=== PATIENT | male | born 1935 | race Caucasian/White ===

== ENCOUNTER → 2016-05-10 | Day surgery (SDC) | payer MEDICARE, OTHER ==
[~2016-05-10] VITALS: Ht 177.8 cm; Wt 104.3 kg
[~2016-05-10] MED LIST: /ADVA50050; /ADVA50050 INH; /BENA10TA; /PANT40TA PO; /WARF25TA OR; /WARF5TA OR; ACETYLCHOLINE OPHTH SOLN 1% 2ML As Ordered ONE; ACETYLCHOLINE OPHTH SOLN 1% 2ML XX ONE; ADV250INH INH; ALBU17IN INH; ALBU83IN INH; ASPI81TA83; BABY81CH OR; BALANCED SALT IRRIGATION SOLUTION 500ML BAG (FOR OR EYE MACHINE) XX ONE; BENA10TA PO; BENA10TA2 OR; CARD120C3 PO; CARD120T6 OR; CEFUROXIME 1MG/0.1ML INTRACAMERAL INJ As Ordered ONE; CEFUROXIME 1MG/0.1ML INTRACAMERAL INJ XX ONE; CLOB0.0548 TOP; COLA100C PO; COLA100C2; COLA100C2 OR; COUM10TA OR; COUMADIN; DARV100T; FERR325T; FURO40TA2 OR; FURO40TA2 PO; HEALON DUET (HEALON 10MG/ML 0.55ML & HEALON ENDOCOAT 30MG/ML 0.85ML) As Ordered ONE; HYDR-3348 PO; HYDROCODONE; HYDRPOW48 PO; ISOS30BRAN; ISOS30BRAN OR; ISOS30TAB PO; LASI40TA; LIDOCAINE 0.75%/EPINEPHRINE 0.025% IN BSS 1ML SYR INTRACAMERAL (OR ONLY) As Ordered ONE; LIDOCAINE 0.75%/EPINEPHRINE 0.025% IN BSS 1ML SYR INTRACAMERAL (OR ONLY) XX ONE; LIDOCAINE 4% INJ 5 ML AMP OU ONE; LOVE0.6I2 SC; MAGN250T OR; MIDAZOLAM INJ 2 MG/2 ML VIAL (J2250) As Ordered ONE; NEXI1CAP4 PO; NITR0.1D TD; NITR0.1D10 SL; NITR0.4S; NITR0.4S SL; OFLOXACIN 0.3 % (OCUFLOX) OPTH SOL 5ML OS ONE; OFLOXACIN 0.3 % (OCUFLOX) OPTH SOL 5ML XX ONE; OMEP10CASR PO; OXYC10TA12 PO; OXYC15TA76 PO; PAIN325T OR; PARO20TA2 PO; PHENYLEPHRINE 2.5% OPHTH SOL 2ML OS ONE; PHENYLEPHRINE 2.5% OPHTH SOL 2ML XX ONE; PLAV75TA2; PLAV75TA2 OR; POVIDONE-IODINE 5% OPHTH PREP SOL 30ML As Ordered ONE; PRAV80TA OR; PROPARACAINE 0.5% OPHTH SOL 15ML OS ONE; PROPARACAINE 0.5% OPHTH SOL 15ML XX ONE; RANI150C OR; RANI1TAB6 PO; RANO5TAB OR; SPIR25TA2; TROPICAMIDE 1% OPHTH SOLN 2 ML OS ONE; TROPICAMIDE 1% OPHTH SOLN 2 ML XX ONE; VENTAER INH; VICO5TAB OR; WARF-23 PO; ZOCO80TA; ZOCO80TA OR; fentaNYL 100 MCG/2 ML INJECTION (J3010) As Ordered ONE; vitamin d PO
[2016-05-10 13:35] VITALS: BP 150/79
--- NOTE | 2016-05-11 09:26 | RO ---
DATE OF PROCEDURE: 05/10/2016 PREOPERATIVE DIAGNOSIS: Visually significant nuclear sclerotic cataract left eye. POSTOPERATIVE DIAGNOSIS: Visually significant nuclear sclerotic cataract left eye. PROCEDURE: Cataract extraction with use of phacoemulsification and placement of intraocular lens ZCB00, 19.0 Diopter, left eye SURGEON: Caesar Shankar DO INSTRUMENT TECHNICIAN APPRENTICE: ANESTHESIA: Local with monitored anesthesia care (MAC). COMPLICATIONS: None. POSTOPERATIVE CONDITION: Stable. INDICATION FOR SURGERY: Blurred vision left eye affecting patient's activities of daily living. DESCRIPTION OF PROCEDURE: The patient was seen in the preoperative area and properly identified. The correct operative eye was identified and marked. Attention was turned to that eye. The patient received topical antibiotics in the preoperative area. The patient then received topical dilating drops consisting of tropicamide and phenylephrine. The patient was then transferred to the operating room. The correct side was reidentified. The patient received topical anesthetics and antibiotics on the surface of the eye. The eye was prepped and draped in a sterile fashion. The upper and lower eyelids were isolated with Tegaderm tape, and the lids were held open with an adjustable speculum. Using a sideport blade, a paracentesis incision was made. Intraocular preservative-free lidocaine was then injected into the anterior chamber. Viscoelastic was then injected into the anterior chamber through the paracentesis. Using a 2.75 mm sharp-tipped keratome, the anterior chamber was entered via a temporal clear corneal incision. A continuous curvilinear capsulorrhexis was created with the aid of a 26-gauge cystotome and Utrata forceps. Hydrodissection was performed with balanced salt solution (BSS) on a blunt cannula until the nucleus was freely mobile. A small anterior capsular wrent was noted. The crystalline lens was phacoemulsified and aspirated. Inspection of the posterior capsule revealed it to be intact and without tear. Additional cohesive viscoelastic was placed into the capsular bag to deepen it. A ZCB00, 19.0 Diopter lens was placed into the capsular bag and confirmed by visualizing the continuous curvilinear capsulorrhexis. The lens was rotated so that the haptics were away from the anterior capsule wrent. Additional irrigation and aspiration was used to remove cortical material and remaining viscoelastic. The lens remained in good position and centration. A single 10-0 nylon suture was placed to close the main temporal incision. The clear corneal incision was hydrated with BSS on a blunt cannula. The lens was well positioned. The incisions were then tested for leaks and found to be negative. The eye was then palpated for appropriate pressure and adjusted accordingly with BSS. Tobradex ointment was placed in the eye. An eye patch and shield were then secured over the eye. The patient tolerated the procedure well and was discharged to the recovery unit in a stable condition. PRAVEEN
== END | disposition home or self-care (01) ==
LOC: M SDC 11:12
PROVIDERS: ATTEND Ophthalmology
DX: H25.12 Age-related nuclear cataract, left eye (principal); I11.9 Hypertensive heart disease without heart failure; I25.10 Atherosclerotic heart disease of native coronary artery without angina pectoris; I48.2 Chronic atrial fibrillation; I50.32 Chronic diastolic (congestive) heart failure; M19.90 Unspecified osteoarthritis, unspecified site; I25.2 Old myocardial infarction; E78.00 Pure hypercholesterolemia, unspecified; F17.290 Nicotine dependence, other tobacco product, uncomplicated; G89.4 Chronic pain syndrome; M48.06 Spinal stenosis, lumbar region; J84.10 Pulmonary fibrosis, unspecified; K85.90 Acute pancreatitis without necrosis or infection, unspecified; G62.9 Polyneuropathy, unspecified; E55.9 Vitamin D deficiency, unspecified; K21.9 Gastro-esophageal reflux disease without esophagitis; D64.9 Anemia, unspecified; G47.33 Obstructive sleep apnea (adult) (pediatric); J44.9 Chronic obstructive pulmonary disease, unspecified; Z79.899 Other long term (current) drug therapy; Z79.02 Long term (current) use of antithrombotics/antiplatelets; Z95.0 Presence of cardiac pacemaker; Z95.5 Presence of coronary angioplasty implant and graft; Z96.1 Presence of intraocular lens
CPT/HCPCS: 66984; J2250; J3010; V2632